=== PATIENT | male | born 1990 | race Caucasian/White ===

== ENCOUNTER → 2024-11-22 10:45 | Outpatient (BNVA) | payer BC, SELFPAY | PROVIDERS: PCP Nurse Practitioner Family; Visit Provider Nurse Practitioner Family | DX: L50.9 Urticaria, unspecified (principal); I10 Essential (primary) hypertension | CPT/HCPCS: 80053; 82785; 86001; 86003; 86008 ==

== ENCOUNTER → 2024-12-07 10:39 | Outpatient (BNVA) | payer BC, SELFPAY | PROVIDERS: PCP Nurse Practitioner Family; Visit Provider Nurse Practitioner Family | DX: R73.09 Other abnormal glucose (principal); R79.89 Other specified abnormal findings of blood chemistry | CPT/HCPCS: 82043; 83036; 84403 ==

== ENCOUNTER → 2024-12-19 13:30 | Outpatient (BNVA) | payer BC, SELFPAY | PROVIDERS: PCP Nurse Practitioner Family; Visit Provider Nurse Practitioner Family | DX: I10 Essential (primary) hypertension (principal); E78.1 Pure hyperglyceridemia | CPT/HCPCS: 80061; 84443 ==